=== PATIENT | male | born 1970 | race Two or more races ===

== ENCOUNTER 2017-09-06 11:50 | Emergency (ER) | payer SELFPAY ==
[~2017-09-06] VITALS: Ht 175.3 cm; Wt 84.0 kg
[2017-09-06] MEDS ORDERED: SODIUM CHLORIDE 0.9% 1,000 ML IV ONE (12:19)
[2017-09-06] MEDS ORDERED: KETOROLAC 30MG/ML VIAL IV STA (12:19)
[2017-09-06] MEDS ORDERED: ONDANSETRON HCL 4MG/2ML VIAL IV STA (12:19)
[2017-09-06 12:51] LABS: BASOPHILS % 0.5 % (0.0-2.0); EOSINOPHILS % 2.4 % (0.0-5.0); HEMATOCRIT. 42.2 % (42.0-52.0); HEMOGLOBIN. 14.3 g/dL (14.0-18.0); LYMPHOCYTES % 25.3 % (20.0-50.0); MEAN CORPUSCULAR HEMOGLOBIN 30.4 pg (28.0-32.0); MEAN CORPUSCULAR VOLUME 90.2 fL (80.0-94.0); MEAN PLATELET VOLUME 10.1 fl (7.4-10.4); MONOCYTES % 6.9 % (2.0-8.0); NEUTROPHILS % 64.9 % (40.0-76.0); PLATELET 160 x1000/uL (130-400); RED BLOOD CELL COUNT 4.68 mill/uL (4.7-6.1); RED CELL DISTRIBUTION WIDTH 13.7 % (11.6-14.6)
[2017-09-06 13:01] LABS: CHLORIDE 107 mEq/L (98-107)
[2017-09-06] MEDS ORDERED: HYDROCHLOROTHIAZIDE 25MG TABLET PO ONE (13:15)
[2017-09-06] MEDS ORDERED: HYDROCHLOROTHIAZIDE 12.5MG CAPSULE PO ONE (13:15)
[2017-09-06 14:58] VITALS: BP 142/87
== END 2017-09-06 15:00 | disposition home or self-care (01) ==
LOC: EDBD 11:50 → ER 13:28
DX: I10 Essential (primary) hypertension (principal); R51 Headache
CPT/HCPCS: 36415; 80048; 85025; 93005; 96361; 96374; 96375; 99285; J1885; J2405; J7030; Z7610